=== PATIENT | female | born 1995 | race Caucasian/White ===

== ENCOUNTER → 2018-01-19 08:13 | Outpatient (REF) | payer SELFPAY | LOC: OM 08:13 | PROVIDERS: PCP Family Medicine; Visit Provider Nurse Practitioner Family | DX: Z02.83 Encounter for blood-alcohol and blood-drug test (principal) ==

== ENCOUNTER 2018-03-13 15:14 | Outpatient (REF) | payer MEDICAID, SELFPAY ==
--- NOTE | 2018-03-13 14:30 | PAPFT_PTH ---
PATIENT: YENI HUANG LOC: [facility] U#:[id number] AGE/SX: 22/F ROOM: RE03/13/[address]: VOLODYMYR Marrero : 1995 BED: DIS: 03/13/2018 SPEC #: [id number] RECD: 03/13/18 18:03 STATUS: SYMONE REKev #: [id number] [place]: 03/13/18 14:[address]: Anan Rubio DEPT: [facility] Cytology RECD BY: Laurel Mina ENTERED: 03/13/18 18:03 SP TYPE: PAPFT OTHR DR: Loren Rojas Tissues: 1 - CX/ENDOCX FOR PAP SMEARS Procedures: PAP THIN PREP/[facility] Screening Comments: [id number]
[2018-03-16 15:30] LABS: Chlamydia Result Negative; GC Result Negative
== END 2018-03-13 15:34 ==
LOC: LBN 15:14
PROVIDERS: PCP Family Medicine; Visit Provider Nurse Practitioner Family
DX: Z12.4 Encounter for screening for malignant neoplasm of cervix (principal); Z11.3 Encounter for screening for infections with a predominantly sexual mode of transmission
CPT/HCPCS: 87491; 87591; 88142

== ENCOUNTER 2019-03-26 14:22 | Outpatient (REF) | payer MEDICAID, SELFPAY ==
--- NOTE | 2019-03-26 14:02 | PAPFT_PTH ---
PATIENT: YENI HUANG LOC: [facility] U#:[id number] AGE/SX: 23/F ROOM: RE03/26/[address]: VOLODYMYR Marrero : 1995 BED: DIS: 03/26/2019 SPEC #: [id number] RECD: 03/26/19 18:32 STATUS: SYMONE REQ #: [id number] [place]: 03/26/19 14:[address]: Anna Rubio DEPT: [facility] Cytology RECD BY: Laurel Mina ENTERED: 03/26/19 18:32 SP TYPE: PAPFT OTHR DR: Loren Rojas Tissues: 1 - CX/ENDOCX FOR PAP SMEARS Procedures: PAP THIN PREP/[facility] Screening Comments: [id number]
== END 2019-03-26 14:42 ==
LOC: LBN 14:22
PROVIDERS: PCP Family Medicine; Visit Provider Nurse Practitioner Family
DX: Z12.4 Encounter for screening for malignant neoplasm of cervix (principal)
CPT/HCPCS: 88142

== ENCOUNTER 2019-12-27 10:20 | Outpatient (REF) | payer MEDICAID, SELFPAY ==
--- NOTE | 2019-12-27 10:00 | PAPFT_PTH ---
PATIENT: YENI HUANG LOC: [facility] U#:[id number] AGE/SX: 24/F ROOM: RE12/27/[address]: VOLODYMYR Marrero : 1995 BED: DIS: 12/27/2019 SPEC #: [id number] RECD: 12/27/19 12:58 STATUS: SYMONE REKev #: [id number] [place]: 12/27/19 10:[address]: Anna Rubio [facility] Cytology RECD BY: Laurel Mina ENTERED: 12/27/19 12:58 SP TYPE: PAPFT OTHR DR: Loren Rojsa Tissues: 1 - CX/ENDOCX FOR PAP SMEARS Procedures: PAP THIN PREP/[facility] Screening HPV DNA PROBE Comments: [id number]
[2019-12-30 15:29] LABS: Chlamydia Result Negative (Negative); GC Result Negative (Negative)
== END 2019-12-27 10:40 ==
LOC: LBN 10:20
PROVIDERS: PCP Family Medicine; Visit Provider Nurse Practitioner Family
DX: Z11.3 Encounter for screening for infections with a predominantly sexual mode of transmission (principal); R87.810 Cervical high risk human papillomavirus (HPV) DNA test positive; R87.619 Unspecified abnormal cytological findings in specimens from cervix uteri
CPT/HCPCS: 87491; 87591; 88142; 87624

== ENCOUNTER 2020-01-12 11:18 | Outpatient (REF) | payer MEDICAID, SELFPAY ==
--- NOTE | 2020-01-12 09:30 | CER_PTH ---
PATIENT: YENI HUANG LOC: [facility] U#:[id number] AGE/SX: 24/F ROOM: RE01/12/[address]: Dian Tipton DO : 1995 BED: DIS: 01/12/2020 SPEC #: [id number] RECD: 01/12/20 16:01 STATUS: SYMONE RE #: [id number] [place]: 01/12/20 09:[address]: Dian Tipton DEPT: Surgical Specimen RECD BY: Constance Villatoro ENTERED: 01/12/20 16:07 SP TYPE: CER OTHR DR: Loren Rojas Tissues: 1 - CERVICAL BIOPSY 2 - ENDOCERVICAL BX/CURRETTE Procedures: GROSS AND MICRO LEVEL 4 Comments: [id number]
== END 2020-01-12 11:38 ==
LOC: LBN 11:18
PROVIDERS: PCP Family Medicine; Visit Provider Obstetrics & Gynecology
DX: R87.610 Atypical squamous cells of undetermined significance on cytologic smear of cervix (ASC-US) (principal); R87.810 Cervical high risk human papillomavirus (HPV) DNA test positive
CPT/HCPCS: 88305